=== PATIENT | female | born 1940 | race Caucasian/White ===

== ENCOUNTER 2017-02-02 10:32 | Emergency (ER) | payer MEDICARE, OTHER ==
[2017-02-02] MEDS ORDERED: FLUORESCEIN STRIP 1 MG/STRIP STRIP ONE (11:34)
[2017-02-02] MEDS ORDERED: KETOROLAC 0.45% OPHTH 1 DROP/EACH DROPERETTE ONE (11:35)
[2017-02-02] MEDS ORDERED: TETRACAINE 0.5% OPHTH 15 ML BOTTLE ONE (11:35)
[2017-02-02] MEDS ORDERED: EYE WASH BSS SOLN 1 APPLIC APP ONE (11:35)
[2017-02-02] MEDS ORDERED: TOBRAMYCIN 0.3% OPHTH 25 DROP/5 ML BTL ONE (11:36)
--- NOTE | 2017-02-02 11:41 | ER PHYSICIAN DOCUMENTATION ---
Physician Documentation [facility] Name:Trinidad Hong Age:76 yrs Sex:Female :1940 Arrival Date:02/02/2017 Time:10:32 Bed2 Private MD: David Davila Disposition: 02/02/17 11:35 Discharged to Home/Self Care. Impression: Conjunctivitis. - Condition is Good. - Discharge Instructions: CONJUNCTIVITIS, NONSPECIFIC (Child). - Medical Reconciliation form form. - Follow up: Private Physician; When: 1 week; Reason: Recheck today's complaints. - Problem is new. - Symptoms have improved. HPI: 02/02 11:35 This 76 yrs old Female presents to ER via Private Vehicle with complaints of sc Eye Problem. 11:35 The patient is experiencing redness, tearing, to the right eye, caused by an unknown sc mechanism. Onset: The symptom(s)/episode began/occurred 2 day(s) ago. Duration: the symptoms are continuous. Alleviated by nothing. Associated signs and symptoms: Pertinent positives: None. Patient wears glasses. The patient has not experienced similar symptoms in the past. Historical: - Allergies: PENICILLINS; Codeine; - Home Meds: 1. Multiple Vitamins oral - PMHx: CANCER, BREAST; - PSHx: LUMPECTOMY; Hysterectomy; - Tetanus: < 10 years. - Ebola Screening: : Patient negative for fever greater than or equal to 101.5 degrees Fahrenheit, and additional compatible Ebola Virus Disease symptoms. - Immunization history: Pneumococcal vaccine is up to date, Flu Vaccine < 1 year. - Social history: Smoking status: Patient states was never smoker of tobacco. ROS: 11:36 Constitutional: Negative for fever, chills, and weight loss. sc ENT: Negative for injury, pain, and discharge. Neck: Negative for injury, pain, and swelling. Cardiovascular: Negative for chest pain, palpitations, and edema. Respiratory: Negative for shortness of breath, cough, wheezing, and pleuritic chest pain. Abdomen/GI: Negative for abdominal pain, nausea, vomiting, diarrhea, and constipation. Back: Negative for injury and pain. MS/Extremity: Negative for injury and deformity. Skin: Negative for injury, rash, and discoloration. 11:36 Neuro: Negative for headache, weakness, numbness, tingling, and seizure. oh 11:36 Eyes: Positive for redness, tearing. Exam: 11:37 Visual Acuity: I have reviewed the nursing documentation. Visual acuity is within oh normal limits. Constitutional: This is a well developed, well nourished patient who is awake, alert, and in no acute distress. 11:37 Head/Face: Normocephalic, atraumatic. 11:37 Eyes: Periorbital structures: appear normal, Pupils: equal, round, and reactive to light and accomodation, Extraocular movements: intact throughout, Conjunctiva: injected, in the right eye, Corneas: are normal, a fluorescein strip employed to appreciate the findings, Sclera: no acute changes, Anterior chamber: normal, Lids and lashes: appear normal, Nystagmus: is not appreciated. Vital Signs: 10:42 BP 147 / 73; Pulse 81; Resp 17; Temp 98(O); Pulse Ox 95% on R/A; Weight 80.74 kg; rh Height 5 ft. 3 in. (160.02 cm); 10:42 Body Mass Index 31.53 (80.74 kg, 160.02 cm) rh Visual Acuity: 10:45 Left Eye Visual acuity 20/25, ; Right Eye Visual acuity 20/25, ; Both Eyes Visual rh acuity 20/25; Without Lenses; PT has some tearing in her eyes, therefore 20/20 was a bit blurry for her MDM: 11:13 Patient medically screened. oh 11:37 Differential diagnosis: Chemical conjunctivitis in Allergic conjunctivitis in oh Infectious conjunctivitis in. Data reviewed: vital signs, nurses notes, and as a result, I will discharge patient. Counseling: I had a detailed discussion with the patient and/or guardian regarding: the historical points, exam findings, and any diagnostic results supporting the discharge/admit diagnosis, the need for outpatient follow up, to return to the emergency department if symptoms worsen or persist or if there are any questions or concerns that arise at home. Dispensed Medications: 11:33 Drug: Dacrose - Balanced Salt Soln Drops 1 application; Route: Ophthalmic; Site: right sc eye; 11:39 Follow up: Response: No adverse reaction rh 11:34 Drug: Fluorescein Strip 1 strip; Route: Ophthalmic; Site: right eye; oh 11:39 Follow up: Response: No adverse reaction rh 11:34 Drug: Fluorescein Strip 1 strip; Route: Ophthalmic; Site: right eye; oh 11:39 Follow up: Response: No adverse reaction rh 11:34 Drug: Tetracaine Drops 0.5 % 1 drops; Route: Ophthalmic; Site: right eye; oh 11:40 Follow up: Response: No adverse reaction rh 11:34 Drug: Tobrex Drops (0.3 %) 1 drops; Route: Ophthalmic; Site: right eye; oh 11:40 Follow up: Response: No adverse reaction rh 11:34 Drug: ketorolac (PF) Dropperette 0.45 % 4 drops; Route: Ophthalmic; Site: right eye; oh 11:40 Follow up: Response: No adverse reaction rh Signatures: David Ferguson MD MD sc Hofsess, Rachel
--- NOTE | 2017-02-02 11:41 | ER NURSING DOCUMENTATION ---
Nurse's Notes [facility] Name:Trinidad Hong Age:76 yrs Sex:Female :1940 Arrival Date:02/02/2017 Time:10:32 Bed2 Private MD: Diagnosis:Conjunctivitis Presentation: 02/02 10:36 Presenting complaint: Patient states: For three days she has had soreness, tightness, rh and a gritty feeling in the outer right eye. Pt report watery eyes. Transition of care: Home. 10:36 Acuity: GIL 4 rh 10:36 Method Of Arrival: Private Vehicle rh Triage Assessment: 10:41 General: Appears in no apparent distress, Behavior is cooperative. Pain: Complains of rh pain in lateral canthus of right eye Quality of pain is described as Gritty. EENT: Eyes are tearing on inner aspect of conjuctiva of right eye Redness on the lateral canthus . Neuro: Level of Consciousness is awake, alert, obeys commands, Oriented to person, place, time, event. Neuro: Painter Chassis are equal bilaterally Gait is steady, Speech is normal, Facial symmetry appears normal, Pupils are PERRLA. Cardiovascular: Capillary refill < 3 seconds. Respiratory: Airway is patent. Historical: - Allergies: PENICILLINS; Codeine; - Home Meds: 1. Multiple Vitamins oral - PMHx: CANCER, BREAST; - PSHx: LUMPECTOMY; Hysterectomy; - Tetanus: < 10 years. - Ebola Screening: : Patient negative for fever greater than or equal to 101.5 degrees Fahrenheit, and additional compatible Ebola Virus Disease symptoms. - Immunization history: Pneumococcal vaccine is up to date, Flu Vaccine < 1 year. - Social history: Smoking status: Patient states was never smoker of tobacco. Screenin:43 Infectious Disease Risk None. Abuse screen: Denies threats or abuse. Denies injuries rh from another. Nutritional screening: No deficits noted. Assessment: 10:43 See Triage Assessment done by same RN. rh Vital Signs: 10:42 BP 147 / 73; Pulse 81; Resp 17; Temp 98(O); Pulse Ox 95% on R/A; Weight 80.74 kg; rh Height 5 ft. 3 in. (160.02 cm); 10:42 Body Mass Index 31.53 (80.74 kg, 160.02 cm) rh Visual Acuity: 10:45 Left Eye Visual acuity 20/25, ; Right Eye Visual acuity 20/25, ; Both Eyes Visual rh acuity 20/25; Without Lenses; PT has some tearing in her eyes, therefore 20/20 was a bit blurry for her ED Course: 10:33 Patient arrived in ED. lm3 10:36 Cookie Luna is Primary Nurse. rh 10:40 Triage completed. rh 10:43 Notified ED Physician of patient's arrival and chief complaint. Dr. Ferguson notified. rh 10:44 Valuables Remains with patient Patient has correct armband on for positive rh identification. Bed in low position. Call light in reach. 11:13 David Ferguson MD is Attending Physician. ri Administered Medications: 11:33 Drug: Dacrose - Balanced Salt Soln Drops 1 application; Route: Ophthalmic; Site: right sc eye; 11:39 Follow up: Response: No adverse reaction rh 11:34 Drug: Fluorescein Strip 1 strip; Route: Ophthalmic; Site: right eye; ri 11:39 Follow up: Response: No adverse reaction rh 11:34 Drug: Fluorescein Strip 1 strip; Route: Ophthalmic; Site: right eye; sc 11:39 Follow up: Response: No adverse reaction rh 11:34 Drug: Tetracaine Drops 0.5 % 1 drops; Route: Ophthalmic; Site: right eye; ri 11:40 Follow up: Response: No adverse reaction rh 11:34 Drug: Tobrex Drops (0.3 %) 1 drops; Route: Ophthalmic; Site: right eye; sc 11:40 Follow up: Response: No adverse reaction rh 11:34 Drug: ketorolac (PF) Dropperette 0.45 % 4 drops; Route: Ophthalmic; Site: right eye; ri 11:40 Follow up: Response: No adverse reaction rh Outcome: 11:35 Discharge ordered by . sc 11:40 Discharged to home ambulatory, with significant other. rh 11:40 Condition: improved 11:40 Discharge Assessment: Patient awake, alert and oriented x 3. No cognitive and/or functional deficits noted. Patient verbalized understanding of disposition instructions. 11:40 Discharge instructions given to patient, significant other, Instructed on discharge instructions, follow up and referral plans. Demonstrated understanding of instructions. 11:40 Patient left the ED. 02/03 10:38 Discharge F/U Call: Spoke with: patient. Have you filled your prescriptions? yes. lp Signatures: Silvia Matamoros RN RN lp Chew, Scott, MD MD sc Hofsess, Rachel Mery Torrez Marla
== END 2017-02-02 11:41 | disposition home or self-care (01) ==
LOC: ER 10:32
DX: H10.31 Unspecified acute conjunctivitis, right eye (principal)
CPT/HCPCS: 99283